=== PATIENT | female | born 1955 | race Caucasian/White ===

== ENCOUNTER 2020-05-17 10:49 | Observation (INO) ==
--- NOTE | 2020-05-12 15:43 | XRay Report ---
CLINICAL INFORMATION: Preop COMPARISON: None. TECHNIQUE: PA and Lateral views FINDINGS: The heart size, mediastinum and pulmonary vessels are unremarkable. The lungs are clear. There are no effusions. Mild old compression fractures seen throughout the mid and lower thoracic spine with moderate degenerative disc disease throughout the thoracic spine.. IMPRESSION: No acute cardiopulmonary disease.. Interpreted and Authenticated by: Fabio Thorne 05/12/20
[2020-05-13 14:38] LABS: INR 0.9 (0.9-1.1); Partial Thromboplastin Time 30.2 sec (20.0-37.0); Prothrombin Time 12.9 sec (11.9-14.5)
[~2020-05-17 10:49] MED LIST: ceFAZolin 2 GM in DEXTROSE 5% IN WATER 50 ML IV SCH
[2020-05-17] MEDS ORDERED: PROPOFOL 200 MG/20 ML VIAL IV ONE (14:38)
[2020-05-17] MEDS ORDERED: LIDOCAINE HCL/PF 100 MG/5 ML SYRINGE IV ONE (14:38)
[2020-05-17] MEDS ORDERED: DEXAMETHASONE 10 MG/ML VIAL ONE (14:38)
[2020-05-17] MEDS ORDERED: GLYCOPYRROLATE 0.2 MG/ML VIAL IV ONE (14:38)
[2020-05-17] MEDS ORDERED: KETAMINE 100 MG/ML ML ONE (14:38)
[2020-05-17] MEDS ORDERED: ONDANSETRON 4 MG/2 ML VIAL ONE (14:38)
[2020-05-17] MEDS ORDERED: fentaNYL 100 MCG/2 ML VIAL IV ONE (14:38)
[2020-05-17] MEDS ORDERED: SUGAMMADEX SODIUM 200 MG/2 ML VIAL IV ONE (14:38)
[2020-05-17] MEDS ORDERED: MIDAZOLAM 2 MG/2 ML VIAL ONE (14:38)
[2020-05-17] MEDS ORDERED: KETOROLAC 15 MG/ML VIAL IV PRN (15:34)
[2020-05-17] MEDS ORDERED: IPRATROPIUM/ALBUTEROL 3 ML AMPUL.NEB NEB PRN (15:34)
[2020-05-17] MEDS ORDERED: ONDANSETRON 4 MG/2 ML VIAL IV PRN ×2 (15:34→15:57)
[2020-05-17] MEDS ORDERED: ACETAMINOPHEN 1,000 MG/100 ML BOTTLE IV ONE (15:34)
[2020-05-17] MEDS ORDERED: LACTATED RINGERS 1,000 ML IV SCH (15:45)
--- NOTE | 2020-05-17 15:53 | Brief Operative Note ---
Brief Operative Note Date of procedure: 05/17/20 Pre-op diagnosis: acute cholecystitis with cholelithiasis Post-op diagnosis: other (acute cholecystitis with cholelithiasis) Procedure: laparoscopic cholecystectomy Grafts/Implants: No (maryann drain x1) Anesthesia: GETA Findings: acute inflammation with cholelithiasis Complications: none Surgeon: Jen Jenkins Estimated blood loss (cc): 20 Specimens Removed/Pathology: other (gallbladder with stones) Condition: stable Disposition: PACU
[2020-05-17] MEDS ORDERED: ACETAMINOPHEN 1,000 MG/100 ML BOTTLE IV PRN (15:57)
[2020-05-17] MEDS: fentaNYL 100 MCG/2 ML VIAL IV PRN ×3 (16:21→16:33)
[2020-05-17] MEDS: MEPERIDINE 25 MG/ML SYRINGE IV PRN ×2 (16:42→16:47)
[2020-05-17] MEDS: 0.9 % SODIUM CHLORIDE 1,000 ML IV SCH (17:09)
[2020-05-17] MEDS: PANTOPRAZOLE 40 MG TABLET PO SCH (17:44)
[2020-05-17] MEDS: oxyCODONE HCL 5 MG TABLET PO PRN ×2 (19:41→23:32)
[2020-05-17] MEDS: 0.9 % SODIUM CHLORIDE 10 ML SYRINGE IV SCH (21:01)
[2020-05-18] MEDS: oxyCODONE HCL 5 MG TABLET PO PRN ×4 (04:36→23:48)
[2020-05-18] MEDS: 0.9 % SODIUM CHLORIDE 10 ML SYRINGE IV SCH ×3 (04:37→20:27)
[2020-05-18] MEDS: 0.9 % SODIUM CHLORIDE 1,000 ML IV SCH ×3 (05:54→19:45)
[2020-05-18 06:37] LABS: Basophils # (Auto) 0.02 K/mcL (0.00-0.20); Basophils % (Auto) 0.3 % (0.0-2.0); Eosinophils # (Auto) 0.01 K/mcL (0.00-0.70); Eosinophils % (Auto) 0.1 % (0.0-7.0); Hematocrit 38.6 % (36.0-48.0); Hemoglobin 12.4 g/dL (12.0-15.0); Lymphocytes # (Auto) 1.18 K/mcL (1.50-4.80); Mean Corpuscular HGB Conc 32.1 g/dL (31.0-36.0); Monocytes # (Auto) 0.41 K/mcL (0.10-0.90); Monocytes % (Auto) 5.6 % (1.0-12.0); Platelet Count 229 K/mcL (140-440); RBC 4.29 M/mcL (4.00-5.20); Red Cell Distribution Width 13.8 % (11.5-14.5); WBC 7.4 K/mcL (4.5-11.0)
[2020-05-18] MEDS: PANTOPRAZOLE 40 MG TABLET PO SCH ×2 (07:14→16:13)
[2020-05-18 07:25] LABS: ALT/SGPT 48 U/L (<40); AST/SGOT 52 U/L (<32); Albumin 3.4 gm/dL (3.2-5.2); Albumin/Globulin Ratio 1.5 (1.0-2.3); Alkaline Phosphatase 61 U/L (39-117); Bilirubin,Direct < 0.2 mg/dL (<0.3); Bilirubin,Total 0.3 mg/dL (0.1-1.0); Blood Urea Nitrogen 9 mg/dL (8-23); Calcium 8.1 mg/dL (8.6-10.4); Carbon Dioxide 24 mmol/L (22-30); Chloride 105 mmol/L (96-108); Globulin 2.2 gm/dL (2.2-3.7); Glomerular Filtration Rate 101; Glucose 107 mg/dL (70-105); Lactate Dehydrogenase 209 U/L (135-225); Triglycerides 45 mg/dL (<150); Uric Acid 2.5 mg/dL (2.5-8.0)
[2020-05-18] MEDS ORDERED: PROMETHAZINE 25 MG/ML VIAL IV PRN (15:50)
--- NOTE | 2020-05-18 15:54 | General Surgery Progress Note ---
SUBJECTIVE Subjective Patient information: Note initiated : 05/18/20 at 3:52 pm Service Date, if different from initiated Date: [] Patient: Ana Lopez 65 y/o F admitted on for Laparoscopic Cholecystectomy. Chief Complaint: [] Principal diagnosis: post cholecystectomy Interval history: patient states that she's had recurrent episodes of nausea throughout the day. Her by mouth intake is minimal. DEANDRE drainage is serosa nguineous. Liver panel normal Constitutional Vitals: Vital Signs Temp Pulse Resp BP Pulse Ox 97.6 F 58 L 16 139/69 98 05/18/20 13:48 05/18/20 13:48 05/18/20 13:48 05/18/20 13:48 05/18/20 13:48 Period Temp Pulse Resp BP Sys/Naylor Pulse Ox Last 24 Hr 96.2 F-98.5 F 54-100 10-18 132-188/69-103 93-100 Intake and Output 05/18/20 05/18/20 05/18/20 05:59 13:59 21:59 Intake Total 956 680 Output Total 265 200 Balance 691 480 Intake & Output: Intake & Output 05/18/20 05/18/20 05/18/20 05:59 13:59 21:59 Intake Total 956 680 Output Total 265 200 Balance 691 480 Intake: IV 956 Sodium Chloride 0.9% 1,000 ml @ 956 75 mls/hr IV .[id number] PENDING SALE TO [facility] Rx#: [id number] Oral 680 Output: Drainage 15 Right Abdomen 15 Void Amount 250 200 Other: Meal Breakfast Percent of Meal Consumed 100% Urine Appearance Clear Clear Urine Color Straw Straw Urine Odor Normal Head Head exam: Present atraumatic, normal inspection and normocephalic Eye Eye exam: Present EOMI; Absent scleral icterus Pupils: Present PERRL ENT ENT exam: Present mucous membranes moist and normal exam Neck Neck exam: Present full ROM; Absent tenderness Respiratory Respiratory exam: Present normal respiratory exam; Absent rales, rhonchi and wheezes Cardiovascular Cardiovascular exam: Present normal rate and rhythm, RRR, +S1 and +S2 GI/Abdominal GI/Abdominal exam: Present normal bowel sounds and distended (mildly distended) Additional comments: drainage is serosanguineous without bilious tint Extremities Exam Extremities exam: Present full ROM and normal inspection Neurological Exam Neurological exam: Present alert, CN II-XII intact, motor sensory deficit and normal gait Psychiatric Psychiatric exam: Present anxious, normal affect and normal mood A/P Assessment and plan (1) Cholecystitis with cholelithiasis: Status: Acute Qualifiers: Cholelithiasis location: gallbladder Cholecystitis acuity: acute and chronic Biliary obstruction: without biliary obstruction Qualified Code(s): K80.12 - Calculus of gallbladder with acute and chronic cholecystitis without obstruction Narrative A/P Narrative: promethazine 12.5 mg IV every 4 hours when necessary Reglan 10 mg IV every 6. Delay advancing diet. Check labs in a.m. Time Spent With Patient Time: Total time spent is greater than 50% in coordination of care (as documented) at patient's floor/unit and/or counseling patient:
[2020-05-18] MEDS: METOCLOPRAMIDE 10 MG/2 ML VIAL IV SCH ×2 (17:36→23:48)
[2020-05-19] MEDS: METOCLOPRAMIDE 10 MG/2 ML VIAL IV SCH ×2 (05:06→12:08)
[2020-05-19] MEDS: 0.9 % SODIUM CHLORIDE 10 ML SYRINGE IV SCH ×2 (05:06→12:10)
[2020-05-19] MEDS: 0.9 % SODIUM CHLORIDE 1,000 ML IV SCH (06:45)
[2020-05-19] MEDS: PANTOPRAZOLE 40 MG TABLET PO SCH (07:14)
[2020-05-19] MEDS: oxyCODONE HCL 5 MG TABLET PO PRN ×2 (07:14→12:07)
[2020-05-19 09:27] LABS: Basophils # (Auto) 0.06 K/mcL (0.00-0.20); Basophils % (Auto) 0.9 % (0.0-2.0); Eosinophils # (Auto) 0.16 K/mcL (0.00-0.70); Eosinophils % (Auto) 2.3 % (0.0-7.0); Hematocrit 38.3 % (36.0-48.0); Hemoglobin 12.5 g/dL (12.0-15.0); Lymphocytes # (Auto) 2.05 K/mcL (1.50-4.80); Lymphocytes % (Auto) 29.5 % (15.0-49.0); Mean Cell Volume 89.7 fL (80.0-100.0); Mean Corpuscular HGB Conc 32.6 g/dL (31.0-36.0); Mean Platelet Volume 9.4 fL (7.4-10.4); Monocytes # (Auto) 0.41 K/mcL (0.10-0.90); Monocytes % (Auto) 5.9 % (1.0-12.0); Neutrophils % (Auto) 61.4 % (38.0-78.0); Platelet Count 212 K/mcL (140-440); RBC 4.27 M/mcL (4.00-5.20); Red Cell Distribution Width 13.8 % (11.5-14.5)
[2020-05-19 09:47] LABS: ALT/SGPT 43 U/L (<40); AST/SGOT 41 U/L (<32); Albumin 3.3 gm/dL (3.2-5.2); Albumin/Globulin Ratio 1.6 (1.0-2.3); Alkaline Phosphatase 58 U/L (39-117); Bilirubin,Direct < 0.2 mg/dL (<0.3); Bilirubin,Total 0.3 mg/dL (0.1-1.0); Blood Urea Nitrogen 6 mg/dL (8-23); Calcium 7.8 mg/dL (8.6-10.4); Carbon Dioxide 25 mmol/L (22-30); Chloride 109 mmol/L (96-108); Glomerular Filtration Rate 90; Glucose 86 mg/dL (70-105); Lactate Dehydrogenase 220 U/L (135-225); Phosphorous 1.9 mg/dL (2.5-4.5); Triglycerides 73 mg/dL (<150); Uric Acid 2.1 mg/dL (2.5-8.0)
--- NOTE | 2020-05-19 14:04 | Discharge Summary ---
Discharge Provider Provider Patient information: Note initiated : 05/19/20 at 1:59 pm Service Date, if different from initiated Date: [] Patient: Ana Lopez 65 y/o F admitted on 05/18/20 for Laparoscopic Cholecystectomy. Chief Complaint: [] Date of admission: 05/18/20 16:13 Discharge date: 05/19/20 Primary care physician: GLADIS Holloway Admitting clinician: Jen Jenkins Attending physician on admission: Jen Jenkins Attending physician on discharge: Jen Jenkins Discharging clinician: Jen Jenkins COURSE Hospital Course Hospital course: 65-year-old female status post laparoscopic cholecystectomy on 17 May 2020. She had significant nausea and bloating. Postoperatively, so her discharge was delayed. Today she is doing well and has no complaints. Her pain is controlled with oral medications. She is tolerating regular diet. Patient is stable for discharge home. Discharge diagnosis: cholelithiasis with cholecystitis Reason for admission: postoperative cholecystectomy Procedures: laparoscopic cholecystectomy Pertinent studies/significant findings: none Complications: nnone Time Spent with Patient Time attestation: Total time spent providing and/or coordinating discharge services: Physical Examination Vital Signs Vital signs: Temp Pulse Resp BP Pulse Ox 98.3 F 74 16 158/87 96 05/19/20 12:00 05/19/20 12:00 05/19/20 12:00 05/19/20 12:00 05/19/20 12:00 General physical appearance General physical exam: well developed, well nourished and no distress Eyes Eye exam: PERRL, normal ocular movement and pale ENT ENT exam: normal pinna, normal nares, normal mucosa, no hearing loss and no congestion Head Head exam IM: Present atraumatic, normal inspection and normocephalic Neck Neck exam: no masses, no bruits, trachea midline, no lymphadenopathy and no venous distension Cardiovascular Cardiovascular exam IM: Present normal rate and rhythm, RRR, +S1 and +S2; Absent JVD and systolic murmur Respiratory Respiratory exam: normal expansion, normal respiratory effort, clear to percussion and clear to auscultation Abdomen Abdomen: Present soft, non tender, bowel sounds and surgical scars (port sites are unremarkable; DEANDRE with serosanguineous drainage) Integumentary Integumentary: Present no rash, no growths and no abnormal pigmentation Neurologic Neurologic: Present normal coordination and normal sensation Musculoskeletal Musculoskeletal: Present normal gait and normal posture Psychiatric Psychiatric: Present oriented to time, oriented to person, oriented to place, speech is normal and memory intact Discharge Plan Patient/Caregiver Discharge Instructions Activity: increase activity as tolerated Diet: Regular Diet and Low Fat Prescriptions: New oxycodone-acetaminophen [Endocet] 10-325 mg Tablet 1 tab PO Q4H PRN (Reason: Pain) Qty: 40 RF: 0 promethazine 25 mg Tablet 25 mg PO Q4H PRN (Reason: Nausea) Qty: 20 RF: 0 No Action Centrum Silver Women 8 mg iron-400 mcg-300 mcg tablet 1 tab PO QDAY RF: 0 calcium citrate-vitamin D3 [Citracal-D3 Petites] 200 mg calcium -250 unit tablet 2 tab PO QDAY RF: 0 losartan 50 mg tablet 50 mg PO QDAY Qty: 30 RF: 11 Follow Up Plan Follow up with: Jen Jenkins MD [Physician] - 06/01/20 11:30 am Patient Disposition: Home, Self-Care Prognosis: Good Rehab Potential: Good I certify that the patient requires SNF services: No Overall status at discharge: patient is progressing back to baseline Discharge Orders: Discharge Order (Routine); Ordered 05/19/20 Ordered By: Jen Jenkins Pending Pending Pending: Resuscitation Status Full Code Diet Full Liquid Diet Start FriMay 17 155 Sodium Chloride (Sodium Chloride 0.9%) 1,000 mls @ 75 mls/hr IV .[id number] [facility] Last Admin: 05/19/20 06:45 Dose: Not Given Documented by: ERENDIRAORGAN Admin: 05/18/20 19:45 Dose: 75 mls/hr Documented by: LSCULLJulia Infusion: 05/18/20 19:14 Dose: 75 mls/hr Documented by: Admin: 05/18/20 17:01 Dose: Not Given Documented by: Admin: 05/18/20 05:54 Dose: 75 mls/hr Documented by: DEVENDRACULLJulia Infusion: 05/18/20 05:54 Dose: 75 mls/hr Documented by: DEVENDRACULLJulia Admin: 05/17/20 17:09 Dose: 75 mls/hr Documented by: ANDRIA Metoclopramide HCl (Reglan) 10 mg IV Q6 [facility] Last Admin: 05/19/20 12:08 Dose: 10 mg Documented by: ERENDIRAORGAN Admin: 05/19/20 05:06 Dose: 10 mg Documented by: Admin: 05/18/20 23:48 Dose: 10 mg Documented by: Admin: 05/18/20 17:36 Dose: 10 mg Documented by: BALDOMERO Ondansetron HCl (Zofran) 4 mg IV Q4HP PRN; Protocol PRN Reason: Nausea/Vomiting Last Admin: 05/18/20 12:26 Dose: 4 mg Documented by: BALDOMERO Oxycodone HCl (Roxicodone) 10 mg PO Q4HP PRN; Protocol PRN Reason: Per Pain Protocol Last Admin: 05/19/20 12:07 Dose: 10 mg Documented by: Admin: 05/19/20 07:14 Dose: 10 mg Documented by: ERENDIRAORGAN Admin: 05/18/20 23:48 Dose: 10 mg Documented by: Admin: 05/18/20 16:12 Dose: 10 mg Documented by: ERENDIRAORGAN Admin: 05/18/20 09:20 Dose: 10 mg Documented by: ERENDIRAORGAN Admin: 05/18/20 04:36 Dose: 10 mg Documented by: Admin: 05/17/20 23:32 Dose: 10 mg Documented by: Admin: 05/17/20 19:41 Dose: 10 mg Documented by: LISANDRA Pantoprazole Sodium (Protonix) 40 mg PO BIDAC [facility] Last Admin: 05/19/20 07:14 Dose: 40 mg Documented by: ERENDIRAORGAN Admin: 05/18/20 16:13 Dose: 40 mg Documented by: ERENDIRAORGAN Admin: 05/18/20 07:14 Dose: 40 mg Documented by: ERENDIRAORGAN Admin: 05/17/20 17:44 Dose: Not Given Documented by: ANDRIA Promethazine HCl (Phenergan) 12.5 mg IV Q4HP PRN; Protocol PRN Reason: Nausea/Vomiting Last Admin: 05/18/20 16:05 Dose: 12.5 mg Documented by: BALDOMERO Sodium Chloride (Saline Flush) 10 ml IV Q8 [facility] Last Admin: 05/19/20 12:10 Dose: Not Given Documented by: ERENDIRAORGAN Admin: 05/19/20 05:06 Dose: Not Given Documented by: Admin: 05/18/20 20:27 Dose: Not Given Documented by: Admin: 05/18/20 13:50 Dose: Not Given Documented by: Admin: 05/18/20 04:37 Dose: Not Given Documented by: Admin: 05/17/20 21:01 Dose: Not Given Documented by: LISANDRA Shift Summary 05/19/20 02:53 Shift Summary by Shazia Khan AOX4. Up with 1 assist/FWW/GB. Patient skin intact other than the 3 lap sites and DEANDRE to abdomen. DEANDRE drain put out minimal drainage. NS @ 75 to LFA. Oxycodone 10 mg Q4H prn. VSS on RA. Patient stayed the night due to nausea. Reglan Q6H started and patient also has phenergan and zofran. No nausea during the night. Oxycodone 10 mg given X 1. Will update at bedside. Initialized on 05/19/20 02:53 - END OF NOTE
--- NOTE | 2020-05-19 14:08 | Surgical Pathology Report ---
Histology Microscopic Diagnosis Specimen A- GALLBLADDER, CHOLECYSTECTOMY: -- CHRONIC CHOLECYSTITIS WITH CHOLELITHIASIS. -- ONE BENIGN LYMPH NODE. (RLF:sln) Procedural Impression Cholecystitis. Gross Description Received in formalin labeled gallbladder, is a 6.5 x 2.7 x 1.9 cm pink-moura gallbladder specimen. The majority of the serosa is smooth and glistening with approximately 35% roughened brown-moura. A single metal clamp is present on the cystic duct. The mucosa is anguiano-moura, smooth and fibrous with firmer raised areas. The wall is up to 0.3 cm thick. Found near the cystic duct is a possible lymph node measuring 0.8 x 0.5 x 0.5 cm. Multiple stones and stone fragments ranging in size from less than 0.1 to 0.9 are found within the specimen. Fish Grader sections submitted in one cassette. (KGW:sln) Electronically Signed Nicolle Lynn MD, FCAP Electronically Signed 05/19/2020 2:07 PM
--- NOTE | 2020-05-29 14:03 | Operative Note ---
DATE OF OPERATION: 05/18/2020 PREOPERATIVE DIAGNOSIS: Acute cholecystitis with cholelithiasis. POSTOPERATIVE DIAGNOSIS: Acute cholecystitis with cholelithiasis. PROCEDURE: Laparoscopic cholecystectomy. SURGEON: Jen Jenkins M.D. FINDINGS: Acute inflammation with cholelithiasis. DESCRIPTION OF PROCEDURE: Under general anesthesia, the patient's abdomen was prepped and draped in a sterile field. Supraumbilical incision was made and Veress needle was inserted uneventfully. Abdomen was insufflated with 2 liters of CO2. A 12 mm port was placed. Laparoscope was placed. Under videoscopic guidance, a 12 mm port and two 5 mm ports were placed in the right subcostal region. The gallbladder was acutely inflamed and needed to be decompressed. It was decompressed with a Weck needle. The gallbladder was grasped and positioned. Cystic duct was dissected and followed back to the gallbladder. Cystic artery branch was dissected and followed back to the gallbladder. Cystic artery was clipped with five clips and divided on the wall of the gallbladder. Cystic duct was then placed on stretch and was divided using Endo JITENDRA stapler close to the gallbladder. The gallbladder was then from the infrahepatic bed using electrocautery and blunt dissection. The gallbladder was placed in an Endopouch and retrieved. Hemostasis was achieved with electrocautery. A Shen drain was placed in the hepatic bed and brought out through the most lateral port site. Irrigation was carried out until the fluid returned clear. CO2 was allowed to escape from the abdomen and the ports were removed. The fascia at the umbilicus was closed with interrupted 0 Vicryl. Skin incisions were closed with eva. The drain was secured with 2-0 nylon. Tegaderm dressings were placed. The patient tolerated the procedure well. She was awakened, transferred to a bed, and taken to the postanesthetic care unit in stable, satisfactory condition. LCS:larry Job ID: [id number] Doc ID: [id number] Jen Jenkins M.D.
== END 2020-05-19 15:17 | disposition home or self-care (01) ==
LOC: MEDSUR 10:49 → SUR 10:49 → MEDSUR 17:00
PROVIDERS: ADMIT Family Medicine Adult Medicine; ATTEND Family Medicine Adult Medicine

== ENCOUNTER 2022-02-25 07:34 | Observation (INO) ==
[2022-02-25] MEDS ORDERED: IOPAMIDOL 100 ML BOTTLE IV ONE (07:35)
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
--- NOTE | 2022-02-25 08:02 | Cat Scan Report ---
History: New stroke symptoms, prior surgical clipping of an intracranial aneurysm TECHNIQUE: The brain was imaged without contrast in axial plane at 2.5 mm intervals. Sagittal and coronal reformats were created. The radiation exposure was limited using dose reduction technology. FINDINGS: There is an old healed right temporal craniotomy defect. A large metal aneurysm clip is present above the greater wing of the right sphenoid bone and lateral to the right cavernous sinus. Above the aneurysm clip there is an old infarct with encephalomalacia involving the head of the right caudate nucleus and the adjacent uribe radiata. There is secondary dilatation of the frontal horn of the right lateral ventricle. These are chronic stable findings, unchanged from the prior head CT done on 08/04/19. No acute infarct is detected. There is no hemorrhage or mass effect. There is mild frontal lobe atrophy. There is no abnormal extra-axial fluid collection. Ventricles are nondilated. IMPRESSION: No acute abnormality and no change since 08/04/19 Dr. Kamara was called with the report Interpreted and Authenticated by: Leroy Vargas 02/25/22
[2022-02-25 08:06] LABS: POC Calcium, Ionized 1.23 (1.16-1.32); POC Creatinine 0.7 (0.6-1.2); POC Potassium 3.9 (3.3-5.1)
[2022-02-25 08:10] LABS: POC INR 1.1 (0.8-1.2); POC Pro Time 13.1 (11.9-14.5)
--- NOTE | 2022-02-25 08:53 | Cat Scan Report ---
History: Acute stroke symptoms TECHNIQUE: Following injection of intravenous nonionic contrast, arterial phase images were acquired from the aortic arch to the top of the head. Sagittal, coronal, curvilinear reformats and MIPS images were created of the head and neck. Radiation exposure was limited using dose reduction technology. FINDINGS: NECK: Mild pleural and parenchymal scarring are present in both lung apices. There is chronic stable degenerative disc disease and arthritis at multiple levels in the cervical spine. The aortic arch and great vessels arising from the aorta are normal in caliber. The common carotids are normal. There is a small eccentric plaque along the wall of the left carotid bifurcation. There is no stenosis or dissection. There is mild irregularity along the posterior wall of the proximal right internal carotid, but there is no ulceration or plaque. Internal and external carotids are normal in caliber and there is no thrombosis or dissection. The vertebral arteries are normal and symmetric. Brain: There is a large aneurysm clip above the supraclinoid portion of the right internal carotid and contiguous with the origin of the M1 segment of the right middle cerebral artery. There is no evidence of residual or new aneurysm at this site. There is normal blood flow in the cavernous and petrous portions of both internal carotids. The middle cerebral arteries are normal and symmetric. Anterior cerebral arteries are also normal and symmetric. 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 One of them provides most of the blood flow to the right posterior cerebral. 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 Left posterior cerebral is normal. There is no intracranial thrombosis, aneurysm or stenosis. Comparison with the prior CT angiogram done on 08/04/19 shows no significant change. IMPRESSION: Normal blood flow in the head and neck, without evidence of stenosis or vascular occlusion. Normal postsurgical changes following clipping of an aneurysm arising from the origin of the right middle cerebral artery. No new aneurysm has formed. ER doctor was called with report Interpreted and Authenticated by: Leroy Vargas 02/25/22
[2022-02-25 09:01] LABS: Basophils # (Auto) 0.06 K/mcL (0.00-0.30); Basophils % (Auto) 1.1 % (0.0-2.0); Eosinophils # (Auto) 0.16 K/mcL (0.00-0.70); Eosinophils % (Auto) 2.9 % (0.0-7.0); Hematocrit 39.7 % (34.1-44.9); Hemoglobin 13.6 g/dL (11.2-15.7); Lymphocytes # (Auto) 1.96 K/mcL (1.50-4.80); Lymphocytes % (Auto) 35.8 % (15.5-49.0); Mean Cell Volume 86.5 fL (80.0-100.0); Mean Corpuscular HGB Conc 34.3 g/dL (31.0-36.0); Mean Platelet Volume 9.8 fL (7.4-10.4); Monocytes # (Auto) 0.58 K/mcL (0.10-0.90); Monocytes % (Auto) 10.6 % (1.0-12.0); Neutrophils % (Auto) 49.4 % (38.0-78.0); Platelet Count 249 K/mcL (140-440); RBC 4.59 M/mcL (3.59-5.38); Red Cell Distribution Width 13.3 % (11.5-14.5); WBC 5.5 K/mcL (4.5-11.0)
[2022-02-25 09:29] LABS: ALT/SGPT 24 U/L (<40); AST/SGOT 29 U/L (<32); Alkaline Phosphatase 97 U/L (39-117); Bilirubin,Direct < 0.2 mg/dL (0-0.3); Bilirubin,Total 0.2 mg/dL (0.1-1.0); Globulin 2.7 gm/dL (2.2-3.7)
[2022-02-25 11:09] LABS: Appearance,Urine Clear (Clear); Bilirubin,Urine Negative (Negative); Color,Urine Yellow; Culture Indicated,Urine No; Glucose,Urine (UA) Negative (Negative); Ketones,Urine Negative (Negative); Leukocyte Esterase,Urine Negative /uL (Negative); Nitrate,Urine Negative (Negative); PH,Urine 7.5 (5.0-9.0); Protein,Urine Negative (Negative); Specific Gravity,Urine 1.015 (1.000-1.035); Urine Blood Trace-lysed ery/mcL (Negative); Urine RBC 1 /hpf (0-3); Urine Squamous Epithelial Cell < 1 /hpf (0-4); Urine WBC 0 /hpf (0-4); Urobilinogen,Urine Normal
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
[2022-02-25] MEDS ORDERED: POTASSIUM CHLORIDE 20 MEQ TABLET PO PRN ×2 (12:12)
[2022-02-25] MEDS ORDERED: SENNOSIDES 1 TABLET PO PRN (12:12)
[2022-02-25] MEDS ORDERED: LABETALOL 5 MG/ML ML IV PRN (12:12)
[2022-02-25] MEDS ORDERED: 0.9 % SODIUM CHLORIDE 1,000 ML IV ONE (12:12)
[2022-02-25] MEDS ORDERED: IPRATROPIUM/ALBUTEROL 3 ML AMPUL.NEB NEB PRN (12:12)
[2022-02-25] MEDS ORDERED: POLYETHYLENE GLYCOL 3350 17 GM PACKET PO PRN (12:12)
[2022-02-25] MEDS ORDERED: POTASSIUM CHLORIDE 40 MEQ in DEXTROSE 5% IN WATER 500 ML IV PRN (12:12)
[2022-02-25] MEDS ORDERED: ACETAMINOPHEN 325 MG TABLET PO PRN (12:12)
[2022-02-25] MEDS ORDERED: MAGNESIUM SULFATE 2 GM/50 ML BAG IV PRN (12:12)
[2022-02-25] MEDS ORDERED: ONDANSETRON 4 MG/2 ML VIAL IV PRN (12:12)
[2022-02-25] MEDS: 0.9 % SODIUM CHLORIDE 10 ML SYRINGE IV SCH ×2 (12:30→21:06)
[2022-02-25 12:55] LABS: HDL Cholesterol 67 mg/dL (>40); LDL Cholesterol,Calculated 103 mg/dL (<100); Non-HDL Cholesterol 119 mg/dL (<130); Triglycerides 83 mg/dL (<150)
--- NOTE | 2022-02-25 17:39 | Emergency Department Note ---
ED Note Addendum Note Addendum: EKG: Normal sinus rhythm with a rate of 60, normal axis, MN 130, QRS of 83, QTc of 416, and absence of ST elevation or depression.
[2022-02-25] MEDS ORDERED: ATORVASTATIN 40 MG TABLET PO SCH (21:00)
[2022-02-25] MEDS: DOCUSATE SODIUM 100 MG CAPSULE PO SCH (21:06)
[2022-02-26] MEDS: 0.9 % SODIUM CHLORIDE 10 ML SYRINGE IV SCH (06:03)
[2022-02-26] MEDS ORDERED: PANTOPRAZOLE 40 MG TABLET PO SCH (07:30)
[2022-02-26] MEDS: DOCUSATE SODIUM 100 MG CAPSULE PO SCH (08:29)
[2022-02-26] MEDS ORDERED: MULTIVIT,THER IRON,CA,FA & MIN 1 TABLET PO SCH (09:00)
[2022-02-26] MEDS ORDERED: ENOXAPARIN 30 MG/0.3 ML SYRINGE SQ SCH (09:00)
[2022-02-26] MEDS ORDERED: VITAMIN D3 25 MCG TABLET PO SCH (09:00)
[2022-02-26] MEDS ORDERED: CALCIUM W/VIT D3 500 MG TABLET PO SCH (09:00)
--- NOTE | 2022-02-26 11:33 | Cat Scan Report ---
History: Transient ischemic attack, prior surgical clipping of cerebral aneurysm TECHNIQUE: The brain was imaged without contrast in axial plane at 2.5 mm intervals. Sagittal and coronal reformats were created. The radiation exposure was limited using dose reduction technology. FINDINGS: There is a stable lacunar infarct with encephalomalacia in the head of the right caudate nucleus and adjacent anterior limb of the right internal capsule. Measures roughly 1.4 cm in dimension. Posterior and inferior to the infarct there is a large metal aneurysm clip. No new infarct has developed. There is no hemorrhage or cerebral edema. No mass effect is present. There is no abnormal extra-axial fluid collection. Postsurgical changes are again seen following a prior right temporal craniotomy. There is mild frontal lobe atrophy. Comparison with the recent head CT done on 02/25/2022 and 08/04/2019 shows no change. IMPRESSION: Stable old infarct in the right basal ganglia adjacent to the aneurysm clip. No acute abnormality and no change from recent exams Interpreted and Authenticated by: Leroy Vargas 02/26/22
--- NOTE | 2022-02-26 12:14 | Discharge Summary ---
Discharge Provider Provider IMPORTANT FOLLOW-UP INFORMATION FOR PCP: Patient information: Note initiated : 02/26/22 at 12:11 pm Service Date, if different from initiated Date: [] Patient: Ana Lopez 67 y/o F admitted on 02/25/22 for Stroke (neurology). Chief Complaint: [] Date of admission: 02/25/22 12:08 Discharge date: 02/26/22 Primary care physician: GLADIS Holloway Attending physician on admission: Raudel Solo Consults: 02/25/22 Consult to Physician [CONS] Stat Comment: Consulting Provider: Raudel Solo Reason For Exam: Physician to Consult 02/25/22 08:08 Consult to Physician [CONS] Stat Comment: Consulting Provider: Telestroke,Provider Reason For Exam: Physician to Consult Attending physician on discharge: Chi Madonna Pui COURSE Hospital Course Hospital course: Ms. Lopez is a 67 year old F presents to the ED with speech abnormalities weakness and slurring and feeling off balance. Woke up at 530 this morning and felt off. Weakness described as left upper extremity weakness. She does have a balance problem but felt more off balance today. Denies being recently sick but she said she did have a little bit of an upset stomach last night. No headaches. Her symptoms have improved dramatically since this morning. EKG in sinus. Stroke work-up was commenced in the ED. CTA head and neck unremarkable. Case was discussed with stroke neurologist who initially recommended dual antiplatelet. However in speaking with the patient she was told from a neurosurgeon to not take antiplatelets related to a past aneurysm and cva. Stroke neurologist did say go ahead and hold off on antiplatelets at this time but continue with all other routine stroke treatment protocols. 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 At that time her neurosurgeon told her PCP not to put her on aspirin because she was a bleeder. At this point in her life given her increasing age and hypertension and her CVA/TIA likely result from cerebrovascular disease and the fact that her incident 30 years ago was related to aneurysm that was clipped, the benefits probably outweigh the risks of antiplatelet therapy. This is something that will need to be readdressed later. 02/26: Repeat CT of the head without contrast did not show any acute intracranial pathologies. 2D echocardiogram within normal limits no endocardial vegetations. Auto patient's symptoms resolved. Physical therapist evaluated the patient's and felt the patient could be discharged home when medically stable. Decision made to discharge patient home with 2 weeks PCP follow-up appointment made for the patient. All questions were answered prior to patient being physically discharged. Discharge diagnosis: Transient ischemic attack Time Spent with Patient Time attestation: Total time spent providing and/or coordinating discharge services: Time spent: Less than 30 minutes EXAM Constitutional Vitals: Temp Pulse Resp BP Pulse Ox O2 Del Method 36.4 C 55 L 21 146/80 97 02/26/22 08:25 02/26/22 06:02 02/26/22 10:01 02/26/22 10:01 02/26/22 08:25 02/25/22 07:35 General appearance: cooperative and no acute distress Head Head exam: Present atraumatic and normocephalic Eye Eye exam: Present EOMI and PERRL ENT ENT exam: Present mucous membranes moist, normal exam and normal external ear exam Neck Neck exam: Present normal inspection; Absent lymphadenopathy, tenderness or thyromegaly Respiratory Respiratory exam: Absent accessory muscle use, respiratory distress or wheezes Cardiovascular Cardiovascular exam: Present normal rate and rhythm; Absent JVD GI/Abdominal GI/Abdominal exam: Present normal bowel sounds and soft; Absent organomegaly or tenderness Extremities Exam Extremities exam: Present full ROM, normal capillary refill and normal inspection; Absent tenderness Neurological Exam Neurological exam: Present alert, CN II-XII intact and oriented X3; Absent motor sensory deficit Psychiatric Psychiatric exam: Present normal affect and normal mood; Absent anxious or depressed Skin Skin exam: Present dry and intact Discharge Data Data Completed and Pending Labs on day of discharge: Labs from last 24 hours 02/25/22 12:14 Triglycerides 83 Cholesterol 186 LDL Cholesterol, Calc 103 H Non-HDL Cholesterol 119 HDL Cholesterol 67 Discharge Plan Patient/Caregiver Discharge Instructions Activity: increase activity as tolerated Diet: Regular Diet Instructions: Transient Ischemic Attack (GEN), Stroke (GEN) Prescriptions: New atorvastatin 40 mg Tablet 40 mg PO HS 30 Days Qty: 30 1RF Continued Centrum Silver Women 8 mg iron-400 mcg-300 mcg tablet 1 tab PO QDAY calcium citrate-vitamin D3 [Citracal-D3 Petites] 200 mg calcium -250 unit tablet 2 tab PO QDAY losartan 100 mg tablet 100 mg PO QDAY Qty: 90 3RF cholecalciferol (vitamin D3) [Vitamin D3] 50 mcg (2,000 unit) Tablet 2,000 unit PO DAILY Follow Up Plan Follow up with: Ben Kenney ARNP [Primary Care Provider] - 03/14/22 3:15 pm (Please arrive 15 min. early) Patient Disposition: Home, Self-Care Prognosis: Fair Rehab Potential: Good I certify that the patient requires SNF services: No Overall status at discharge: patient is back to baseline Discharge Orders: Discharge Order (Routine); Ordered 02/26/22 Ordered By: Barry VILLAGOMEZ VTE Deep Vein Thrombosis/Pulmonary Embolism Present on Admission: No
--- NOTE | 2022-03-01 07:30 | EKG ---
[facility] Test Date: 2022-02-25 Pat Name: Ana Lopez Department: ED Room: Gender: Female Mat Linker: AW : [id number] Requested By: Kenny Kamara Order Number: [id number] Reading MD: Fabio Vargas M.D. Measurements Intervals [place] Rate: 60 P: 20 DC: 130 QRS: 23 QRSD: 83 T: 55 QT: 416 QTc: 416 Interpretive Statements Sinus rhythm Electronically Signed On 03-01-2022 7:30:42 PDT by Fabio Vargas M.D. /[id number]
== END 2022-02-26 13:00 | disposition home or self-care (01) ==
LOC: ED 07:34 → ICU 07:34
PROVIDERS: ADMIT Internal Medicine; ATTEND Internal Medicine